=== PATIENT | female | born 1945 | race Caucasian/White ===

== ENCOUNTER 2018-06-24 15:25 | Inpatient (IN) ==
[2018-06-24] MEDS ORDERED: ASPIRIN 325 MG TABLET PO STA (16:04)
[2018-06-24] MEDS ORDERED: METOPROLOL TARTRATE 5 MG/5 ML VIAL IV STA (16:04)
[2018-06-24] MEDS ORDERED: NITROGLYCERIN 2% OINT 1 INCH/GM PACK TOP STA (16:04)
[2018-06-24 16:15] LABS: Basophils # 0.1 10*3/uL (0.0-0.2); Basophils % 1.3 % (0.0-0.8); Eosinophils # 0.2 10*3/uL (0.0-0.87); Eosinophils % 1.7 % (0.00-10.9); Hematocrit 44.9 VOL% (35.7-47.0); Immature Granulocytes % 0.2 %; Immature Granulocytes Absolute 0.02 #; Lymphocytes # 3.3 10*3/uL (1.4-4.0); Lymphocytes % 35.3 % (21.3-54.2); Mean Corpuscular HGB Conc 33.4 GM/DL (32-36); Mean Corpuscular Hemoglobin 29 PG (27-34); Mean Corpuscular Volume 87.5 FL (87-102); Mean Platelet Volume 10.4 FL (9.6-12.0); Monocytes # 0.5 10*3/uL (0.11-0.8); Monocytes % 5.3 % (1.7-12.7); Neutrophils # 5.2 10*3/uL (1.4-7.4); Neutrophils % 56.2 % (38.7-73.9); Platelet Count 270 T/CUMM (130-400); Red Blood Count 5.13 MC/CUMM (3.8-5.5); Red Cell Distribution Width 13.6 % (9.3-17.3); White Blood Count 9.3 T/CUMM (4-12)
[2018-06-24 16:26] LABS: PT Patient Result 10.5 SECS; Partial Thromboplastin Time 29.2 SECS (0-40)
[2018-06-24 17:02] LABS: Alanine Aminotransferase 28 U/L (13-56); Albumin 4.3 G/DL (3.4-5.0); Alkaline Phosphatase 112 U/L (45-117); Aspartate Amino Transferase 14 U/L (0-37); Blood Urea Nitrogen 22 MG/DL (7-18); Calcium 8.6 MG/DL (8.5-10.1); Glucose 195 MG/DL (74-106); Osmolality,Calculated 284.5 MOS/KG (273-304); Potassium 4.2 MMOL/L (3.5-5.1); Sodium 139 MMOL/L (136-145); Total Protein 7.3 G/DL (6.4-8.3)
[2018-06-24] MEDS ORDERED: MAGNESIUM SULF RIDER 4 GM in PREMIX 1 EACH IV PRN (17:10)
[2018-06-24] MEDS ORDERED: GLUCAGON 1 MG VIAL IM PRN (17:10)
[2018-06-24] MEDS ORDERED: ONDANSETRON 4 MG/2 ML VIAL IV PRN (17:10)
[2018-06-24] MEDS ORDERED: DEXTROSE 50% 25 GM/50 ML VIAL IV PRN (17:10)
[2018-06-24] MEDS ORDERED: LACTULOSE 20 GM/30 ML UDCUP PO PRN (17:10)
[2018-06-24] MEDS ORDERED: ZALEPLON 5 MG CAPSULE PO PRN (17:10)
[2018-06-24] MEDS ORDERED: MAGNESIUM SULF RIDER 2 GM in PREMIX 1 EACH IV PRN (17:10)
[2018-06-24] MEDS ORDERED: SERTRALINE 25 MG TABLET PO ONE (17:37)
[2018-06-24] MEDS ORDERED: PANTOPRAZOLE 20 MG TABLET PO SCH (18:00)
[2018-06-24] MEDS: GABAPENTIN 100 MG CAPSULE PO SCH ×2 (18:37→20:58)
[2018-06-24] MEDS: ACETAMINOPHEN 325 MG TABLET PO SCH ×2 (18:37→20:59)
[2018-06-24] MEDS: traMADol 50 MG TABLET PO SCH ×2 (18:38→20:59)
[2018-06-24] MEDS: PANTOPRAZOLE 40 MG TABLET PO SCH (18:38)
[2018-06-24] MEDS: AMIODARONE 200 MG TABLET PO SCH ×2 (18:38→20:58)
[2018-06-24 19:35] LABS: Albumin 3.9 G/DL (3.4-5.0); Bilirubin,Total 0.9 MG/DL (0.2-1.0); Calcium 8.9 MG/DL (8.5-10.1); Osmolality,Calculated 286.3 MOS/KG (273-304); Total Protein 7.4 G/DL (6.4-8.3)
[2018-06-24] MEDS: INSULIN REGULAR 100 UNIT/ML SUBCUT SCH (20:57)
[2018-06-24] MEDS: SERTRALINE 25 MG TABLET PO SCH (21:05)
[2018-06-24] MEDS: SPIRONOLACTONE 25 MG TABLET PO SCH (21:06)
[2018-06-24] MEDS: APIXABAN 5 MG TABLET PO SCH (21:06)
[2018-06-25 04:29] LABS: Albumin 3.8 G/DL (3.4-5.0); Calcium 8.6 MG/DL (8.5-10.1); Osmolality,Calculated 290.7 MOS/KG (273-304); Potassium 4.5 MMOL/L (3.5-5.1); Total Protein 6.3 G/DL (6.4-8.3)
[2018-06-25] MEDS: AMIODARONE 200 MG TABLET PO SCH ×2 (08:55→20:07)
[2018-06-25] MEDS: FUROSEMIDE 20 MG TABLET PO SCH (08:55)
[2018-06-25] MEDS: ASPIRIN CHEW 81 MG TABLET PO SCH (08:56)
[2018-06-25] MEDS: APIXABAN 5 MG TABLET PO SCH ×2 (08:56→20:08)
[2018-06-25] MEDS: traMADol 50 MG TABLET PO SCH ×2 (08:56→20:07)
[2018-06-25] MEDS: ATORVASTATIN 10 MG TABLET PO SCH (08:56)
[2018-06-25] MEDS: GABAPENTIN 100 MG CAPSULE PO SCH ×3 (08:56→20:08)
[2018-06-25] MEDS: GLIMEPIRIDE 2 MG TABLET PO SCH (08:57)
[2018-06-25] MEDS: SPIRONOLACTONE 25 MG TABLET PO SCH ×2 (08:57→20:08)
[2018-06-25] MEDS: POTASSIUM CHLORIDE 20 MEQ TABLET PO SCH (08:57)
[2018-06-25] MEDS: PANTOPRAZOLE 40 MG TABLET PO SCH (08:57)
[2018-06-25] MEDS ORDERED: NON-FORMULARY MEDICATION (Canagliflozin [Invokana] 300 MG) PO SCH (09:00)
[2018-06-25] MEDS: ACETAMINOPHEN 325 MG TABLET PO SCH ×2 (09:12→20:08)
[2018-06-25] MEDS: INSULIN REGULAR 100 UNIT/ML SUBCUT SCH ×4 (09:12→20:11)
[2018-06-25 11:31] LABS: Apearance,Urine CLEAR (Clear); Bilirubin,Urine Negative (Negative); Blood, Urine Small mg/dL (Negative); Glucose,Urine (UA) >=500 mg/dL (Negative); Ketones,Urine Negative (Negative); Mucus,Urine Occasional /LPF (Occasional); Nitrite,Urine Negative (Negative); Protein,Urine Negative; RBC,Urine <1 /HPF (0-4); Urine Color Colorless (Yellow); Urine Specific Gravity 1.001 (1.001-1.035); Urine Urobilinogen < 2.0 EU/DL (0.2-1.0); WBC,Urine <1 /HPF (0-6)
[2018-06-25] MEDS: SERTRALINE 25 MG TABLET PO SCH (20:08)
[2018-06-26] MEDS: GABAPENTIN 100 MG CAPSULE PO SCH (09:14)
[2018-06-26] MEDS: ASPIRIN CHEW 81 MG TABLET PO SCH (09:14)
[2018-06-26] MEDS: POTASSIUM CHLORIDE 20 MEQ TABLET PO SCH (09:14)
[2018-06-26] MEDS: GLIMEPIRIDE 2 MG TABLET PO SCH (09:15)
[2018-06-26] MEDS: ATORVASTATIN 10 MG TABLET PO SCH (09:15)
[2018-06-26] MEDS: AMIODARONE 200 MG TABLET PO SCH (09:15)
[2018-06-26] MEDS: PANTOPRAZOLE 40 MG TABLET PO SCH (09:15)
[2018-06-26] MEDS: traMADol 50 MG TABLET PO SCH (09:16)
[2018-06-26] MEDS: APIXABAN 5 MG TABLET PO SCH (09:16)
[2018-06-26] MEDS: FUROSEMIDE 20 MG TABLET PO SCH (09:16)
[2018-06-26] MEDS: ACETAMINOPHEN 325 MG TABLET PO SCH (09:16)
[2018-06-26] MEDS: SPIRONOLACTONE 25 MG TABLET PO SCH (09:16)
[2018-06-26] MEDS: INSULIN REGULAR 100 UNIT/ML SUBCUT SCH ×2 (09:17→11:01)
[2018-06-26 12:17] VITALS: BP 140/84
== END 2018-06-26 14:30 | disposition home or self-care (01) | DRG 310 ==
LOC: N.ED 15:25 → N.EDINP 16:57 → N.TELES 17:34
PROVIDERS: ADMIT Internal Medicine Cardiovascular Disease; ATTEND Internal Medicine Cardiovascular Disease